=== PATIENT | female | born 1960 | race Hispanic/Latino ===

== ENCOUNTER 2022-07-07 08:50 | Outpatient (CLI) | payer BC | END 2022-07-07 08:51 | disposition home or self-care (01) | LOC: MADRAD 08:50 | PROVIDERS: ATTEND Nurse Practitioner Family | DX: S90.32XA Contusion of left foot, initial encounter (principal); M79.675 Pain in left toe(s); E13.9 Other specified diabetes mellitus without complications; R93.7 Abnormal findings on diagnostic imaging of other parts of musculoskeletal system ==